=== PATIENT | male | born 1995 | race Caucasian/White ===

== ENCOUNTER 2017-08-14 17:43 | Emergency (ER) | payer BC ==
[2017-08-14 18:06] VITALS: BP 136/69; PULSE 87; RESP 16; TEMP 98.2
--- NOTE | 2017-08-14 18:24 | ED ---
Skin/Abscess/FB HPI - General Chief complaint: Skin/Abscess/Foreign Body Stated complaint: facial abscess Time Seen by Provider: 08/14/17 18:08 Source: patient Mode of arrival: ambulatory Limitations: no limitations - History of Present Illness Initial comments: 21-year-old male patient presented to the emergency department today for evaluation of abscess to his right cheek. Patient states that the area began as what looked like a pimple 2-3 days ago. He states he has been squeezing pus out of it however it does not seem to be getting any better. He states when he squeezes the area he does get white drainage from it. He states he has similar lesion to his left wrist approximately one month ago, he was placed on antibiotics for this, but then had a friend cut open his wrist and remove a "cyst". Patient states he then stopped taking antibiotics in the site improved. He denies any fever or chills with this. He denies any difficulty opening his mouth, closing his mouth, or swallowing. Patient denies any recent rash, shortness breath, chest pain, abdominal pain, nausea, vomiting, diarrhea, constipation, back pain, numbness, tingling, dizziness, weakness, hematuria, dysuria, urinary urgency, urinary frequency, headache, visual changes, or any other complaints. - Related Data Home Medications Medication Instructions Recorded Confirmed Cephalexin [Keflex] 500 mg PO Q6HR 08/14/17 08/14/17 Sulfamethox-Tmp 800-160Mg [Bactrim 1 tab PO BID 08/14/17 08/14/17 DS 800-160 mg] Previous Rx's Medication Instructions Recorded Sulfamethoxazole/Trimethoprim 2 each PO BID #40 tablet 08/14/17 [Bactrim DS 800-160 mg] Allergies Allergy/AdvReac Type Severity Reaction Status Date / Time No Known Allergies Allergy Verified 08/14/17 18:51 Review of Systems ROS Statement: Those systems with pertinent positive or pertinent negative responses have been documented in the HPI. ROS Other: All systems not noted in ROS Statement are negative. Past Medical History Past Medical History: No Reported History History of Any Multi-Drug Resistant Organisms: None Reported Past Surgical History: No Surgical Hx Reported Past Psychological History: No Psychological Hx Reported Smoking Status: Never smoker Past Alcohol Use History: Rare Past Drug Use History: None Reported General Exam Limitations: no limitations General appearance: alert, in no apparent distress, other (This is a well- developed, well-nourished adult male patient in no acute distress. Vital signs upon presentation are temperature 98.2F, pulse 87, respirations 16, blood pressure 136/69, pulse ox 99% on room air.) Eye exam: Present: normal appearance, PERRL, EOMI. Absent: scleral icterus, conjunctival injection, periorbital swelling ENT exam: Present: normal exam, normal oropharynx, mucous membranes moist Neck exam: Present: normal inspection. Absent: tenderness, meningismus, lymphadenopathy Respiratory exam: Present: normal lung sounds bilaterally. Absent: respiratory distress, wheezes, rales, rhonchi, stridor Cardiovascular Exam: Present: regular rate, normal rhythm, normal heart sounds. Absent: systolic murmur, diastolic murmur, rubs, gallop, clicks Neurological exam: Present: alert, oriented X3, CN II-XII intact Psychiatric exam: Present: normal affect, normal mood Skin exam: Present: warm, dry, intact, normal color. Absent: rash Expanded Type of lesion: Present: abscess Distribution of rash: face (Right cheek near lip. Area of induration approximately 1.5cm x 1.5cm. Mild erythema. 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 Physical examination did reveal a 1.5 x 1.5 cm abscess to the cheek. There was a central opening, did puncture this with a in 18-gauge needle, I did have purulent bloody drainage from the wound. Culture was obtained and sent to lab. Patient will be started on double strength Bactrim, 2 tablets twice daily for 10 days. He is instructed to follow-up with his primary care physician for recheck in 1-2 days. He is instructed to apply warm compresses to the site and expressed drainage of possible. He is instructed to return here immediately for any new, worsening, or concerning symptoms. He verbalizes understanding and agrees with this plan. Disposition Clinical Impression: Facial abscess Disposition: HOME SELF-CARE Condition: Good Instructions: Abscess (ED), Warm Compress or Soak (ED) Additional Instructions: Complete medication prescriptions as prescribed. Do warm compresses to the face 20 minutes at a time at least 3 times daily. Take [id number] Tylenol for pain control. Follow-up with your doctor for recheck of the area in 1-2 days. Return here immediately for any new, worsening, or concerning symptoms. Prescriptions: Sulfamethoxazole/Trimethoprim [Bactrim DS 800-160 mg] 2 each PO BID #40 tablet Referrals: None,Stated [Primary Care Provider] - 1-2 days Time of Disposition: 18:23
== END 2017-08-14 19:04 | disposition home or self-care (01) ==
LOC: EC 17:43
DX: L02.01 Cutaneous abscess of face (principal); Z79.899 Other long term (current) drug therapy
CPT/HCPCS: 10060; 87070; 87077; 87186; 87205; 99283